=== PATIENT | male | born 1985 ===

== ENCOUNTER 2025-08-23 15:33 | Emergency (ER) | payer SELFPAY ==
[2025-08-23 15:54] VITALS: BP 143/91; PULSE 65; RESP 18; TEMP 36.6; O2SAT 96
--- NOTE | 2025-08-23 16:15 | EDNOTE_ITS ---
<Statement entered by Nancie Murphy MD - 08/23/25 17:53> As co-signing physician, I was present and available for consult prn. I concur with the plan and care as documented by the midlevel provider. ED Animal Bite RME/HPI General Chief Complaint: Animal Bite Stated Complaint: MOUSE BITE TO R) 3RD FINGER Time Seen by Provider: 08/23/25 15:49 Arrival date/time: 08/23/25 15:33 40-year-old male presents to the emergency department today for complaints of a mouse bite to his right hand third digit patient reports that he caught a mouse at a mouse trap and he attempted to pick it up by the tail when it bit him Limitations: no limitations Related Data Previous Rx's ?Medication ?Instructions ?Recorded amoxicillin 875 mg-potassium 1 tab PO BID 5 days #10 t abs 08/23/25 clavulanate 125 mg tablet ibuprofen 600 mg tablet 600 mg PO Q6H #30 tabs 08/23 Allergies Allergy/AdvReac Type Severity Reaction Status Date / Time No Known Allergies Allergy Verified 08/23/25 15:36 Review of Systems Review of Systems Systems Reviewed: All systems reviewed, normal except as documented Constitutional Constitutional: Reports system reviewed and no additional complaints, except as documented, Denies fever(s) and Denies headache(s) Eyes Eyes: Reports system reviewed and no additional complaints, except as documented and Denies blurry vision ENT Ears, Nose, Mouth, and Throat: Reports system reviewed and no additional complaints, except as documented, Denies headache(s), Denies nasal congestion and Denies nasal discharge Cardiovascular Cardiovascular: Reports system reviewed and no additional complaints, except as documented, Denies chest pain and Denies dyspnea Respiratory Respiratory: Reports system reviewed and no additional complaints, except as documented, Denies chest congestion, Denies cough and Denies dyspnea Gastrointestinal Gastrointestinal: Reports system reviewed and no additional complaints, except as documented and Denies abdominal pain Integumentary/Breasts Skin/Breast: Reports system reviewed and no additional complaints, except as documented, Denies rash and Reports wounds (Right hand middle finger bite) Neurologic Neurologic: Reports system reviewed and no additional complaints, except as documented, Reports as per HPI and Denies headache(s) Past Medical History Social History SMOKING STATUS: Never smoker ED Exam General Limitations: Present no limitations General appearance: Present alert and in no apparent distress Head Head exam: Present atraumatic Eye Eye exam: Present normal appearance, PERRL and EOMI ENT ENT exam: Present normal exam, normal oropharynx and mucous membranes moist Neck Neck exam: Present normal inspection, full ROM and trachea midline Chest Chest inspection: Present normal inspection and symmetric chest wall rise Respiratory Respiratory exam: Present normal lung sounds bilaterally Cardiovascular Cardiovascular exam: Present regular rate, normal rhythm and normal heart sounds Abdominal Exam Abdominal exam: Present soft and normal bowel sounds Extremities Exam Extremities exam: Present normal inspection and full ROM Back Exam Back exam: Present normal inspection and full ROM Neurological Exam Neurological exam: Present alert, oriented X3 and CN II-XII intact Psychiatric Psychiatric exam: Present normal affect and normal mood Skin Skin exam: Present warm, dry and other (Finger bite right hand) Course Quality Measures none Orders Category Date Time Status TDap [Obtain Tdap Consent] X1 Care 08/23/25 16:19 Active TET,DIP/PERT AC (Adult)-Tdap [Boostrix Adult (Tdap) Med 08/23/25 16:19 Discontinued Vacc] 0.5 ml IMI .ONCE ONE Vital Signs Vital signs: Vital Signs Temperature 97.9 F 08/23/25 15:54 Pulse Rate 65 08/23/25 15:54 Respiratory Rate 18 08/23/25 15:54 Blood Pressure 143/91 H 08/23/25 15:54 Pulse Oximetry (%) 96 08/23/25 15:54 Oxygen Delivery Method Room Air 08/23/25 15:54 O2 saturation 96% room air within normal limits Animal Bite MDM Narrative MDM Narrative:: 40-year-old male presents to the emergency department today for complaints of a mouse bite to his right hand third digit patient reports that he caught a mouse at a mouse trap and he attempted to pick it up by the tail when it bit him On exam patient appears well I do not appreciate any injuries Patient given a tetanus shot discharged home with course of antibiotics Patient discharged home in no distress to follow-up with primary care doctor in the next 24 to 48 hours and for any worsening symptoms to return to the ER immediately Patient data External records reviewed:: [facility] previous records Clinical information provided by:: patient Social determinants that could affect healthcare access:: none Patient has the following chronic illnesses:: None How is presenting disease/condition affected by chronic disease/condition?: no chronic disease Evaluation data The following diagnostics were reviewed and interpreted by me:: other (specify) (N/A) Lab and/or radiology exams considered but not ordered:: Considered not ordered Interpretation Summary: N/A Medications / Prescriptions Medications or Prescriptions considered but not ordered:: Given the Medication administrations:: Medication Administration History Discontinued Medications Diphtheria/Tetanus/Acell Pertussis (Diphth,Pertuss(Acell),Tet Vac 0.5 Ml Syr- Adult) 0.5 ml IMi .ONCE ONE Stop: 08/23/25 16:20 Given Consultations Consultation(s) initiated? (list below): No Diagnosis Differential diagnosis animal bite: bite by animal Most likely diagnosis given after review of the tests above:: Mouse bite Admission Indicated Admission indicated?: not indicated Admission Request Was there a request for admission?: No Disposition Plan Disposition Plan: Discharge Discharge Attestation Discharge Attestation: The patient and all family members were given an opportunity to ask questions and understood the discharge instructions. Discharge instructions specifically effects, indications for sooner follow up or return to the emergency department, and the expected course of current diagnosis. Patient condition: Stable Discharge Plan Plan Patient Disposition: HOME (Self Care) Discharge Disposition comment: Stable Prescriptions/Referrals Prescriptions/Med Rec: New ibuprofen 600 mg tablet 600 mg PO Q6H Qty: 30 0RF amoxicillin-pot clavulanate 875-125 mg tablet 1 tab PO BID 5 Days Qty: 10 0RF Problem List Clinical Impression: Bite by animal Patient/Caregiver Discharge Instructions Additional Instructions: Please follow up with your primary care doctor in the next 24-48hrs for any worsening symptoms return here immediately Print Language: Martiniquais Stand Alone Forms: Christen Award Info., Patient Portal Info Letter Vaccines Vaccines Given During Stay: TDaP PA/LARA Supervising Physician ELIZABET/LARA Supervising Physician: dr murphy
[2025-08-23] MEDS: DIPHTH,PERTUSS(ACELL),TET VAC 0.5 ML SYR- ADULT IMi (16:44)
== END 2025-08-23 17:17 | disposition home or self-care (01) ==
LOC: SERX 17:22
PROVIDERS: Emergency Provider Nurse Practitioner Primary Care
DX: S61.252A Open bite of right middle finger without damage to nail, initial encounter (principal); W53.01XA Bitten by mouse, initial encounter; Z23 Encounter for immunization
CPT/HCPCS: 90471; 90715; 99281